=== PATIENT | female | born 1930 | race Caucasian/White ===

== ENCOUNTER 2018-05-22 10:40 | Emergency (ER) | payer BC, OTHER ==
--- NOTE | 2018-05-22 10:44 | PDOC ---
History of Present Illness - General Chief Complaint: Injury Stated Complaint: FALL Time Seen by Provider: 05/22/18 10:43 History Source: Patient, Spouse, Old Records Exam Limitations: No Limitations - History of Present Illness Initial Comments: HPI: 88 y/o female BIBEMS to [facility] ER complaining of pain and bleeding from right side of face. Pt reports she was walking outside and slipped in a puddle of water. She fell to the ground and struck the right side of her face. Her right arm was cushined by a bag she was carrying. Denies LOC, anterograde or retrograde amnesia, and/or nausea/vomiting. Was not able to stand afterward but reports she requires assistance moving from floor to standing normally. Denies headache, visual changes, or difficulty breathing. Pt is anticoagulated on Apixaban for atrial fibrillation. PCP: Dr. Downey Past History - Past Medical History Allergies/Adverse Reactions: Allergies Allergy/AdvReac Type Severity Reaction Status Date / Time No Known Allergies Allergy Verified 10/09/13 14:28 Home Medications: Ambulatory Orders Calcium Carbonate/Vitamin D3 [Calcium 500 + D Tablet] 1 each PO BID 10/09/13 Diltiazem "Cd" [Tiazac] 240 mg PO DAILY 10/09/13 Levothyroxine [Synthroid -] 50 mcg PO DAILY 10/09/13 Apixaban [Eliquis] 5 mg PO BID 05/22/18 Atorvastatin Ca [Lipitor] 10 mg PO HS 05/22/18 Propranolol HCl [Inderal LA] 120 mg PO DAILY 05/22/18 HTN: Yes Thyroid Disease: Yes - Surgical History Appendectomy: Yes - Suicide/Smoking/Psychosocial Hx Smoking History: Never smoked Hx Alcohol Use: No Review of Systems - Review of Systems Able to Perform ROS?: Yes Comments:: In addition to that documented in the HPI above, the additional ROS was obtained : Constitutional: Denies fevers or chills or syncope ENMT: Denies sore throat CV: Denies chest pain Resp: Denies SOB GI: Denies vomiting or diarrhea Trauma: Per HPI *Physical Exam - Physical Exam Comments: Constitutional: Well-developed, well-nourished elderly female in no acute distress or obvious discomfort. Found sitting upright on edge of hospital bed. Alert and oriented x4. Answered all questions appropriately and completely. Speech was non-labored, non-pressured. Head: Normocephalic. Superficial linear laceration above right orbit and on bridge of nose. Hematoma to middle of forehead. Oozing blood and clot at distal medial aspect of right nare. Symmetrical deformity to middle of nose. No periorbital bruising or Battles sign. Eyes: Pupils 3mm and PERRL bilaterally. Sclerae white. Conjunctiva moist and not injected. EARS: Hearing grossly intact. NOSE: No nasal discharge. THROAT: Upper dentures removed. Small amount of dried blood in posterior oropharynx without obvious intraoral injuries. Oral cavity and pharynx normal. No inflammation, swelling, exudate, or lesions. Neck: Supple, trachea is midline. Pt able to laterally rotate neck to left and right >45 degrees. No subjective C-spine tenderness or acute appearing bony deformities. No step off. Cardiovascular: Regular rate and regular rhythm. No murmur, rubs, clicks, or gallops. Peripheral pulses: Radial pulses full. Respiratory: Breathing unlabored. Equal chest rise and fall. Clear to auscultation bilaterally. No stridor, no wheezing, no rhonchi. Neuro: Alert and oriented. Moving all four extremities spontaneously. Skin: Warm and dry. Psych: Affect: appropriate. Mood: normal. Medical Decision Making - Medical Decision Making *Reviewed vital signs, nursing notes, and prior visit documentation (if available). 88 y/o female with superficial lacerations to face, oozing blood for nare, and nasal deformity after mechanical fall. Anticoagulated on Apixaban. Vitals unremarkable for hypotension or tachycardia. Will obtain head, c-spine, and facial bones to further evaluate. Pt declined analgesics. CT revealed closed fracture of nasal bones involving the septum. Not likely to require emergent correction as the pt denies difficulty breathing. Will refer to ENT for outpatient evaluation. Pt reassessed. Denies worsening pain. Minimal bleeding from nare continues. Pt will provide direct pressure. Will observe and reassess to insure hemostasis and stable vital signs. Pt reassessed. Bleeding appears to have stopped. Discussed imaging findings with pt and . Answered all questions. Provided return precautions. Both expressed verbal understanding and agreement with plan to discharge home with outpatient follow up. 05/22/18 14:30 Called to bedside by RN. Pt reports return of bleeding while using the bathroom. Had pt evacuate the nostril, which revealed several large clots. Pt will apply direct pressure. Direct pressure was unsuccessful in tamponading. Administered Afrin spray and then packed nare with TXA soaked gauze. Direct pressure was held. Hemostasis was achieved. Pt observed in department for a further 45 min at pt's family request. No further bleeding. Pt again provided return precautions for further bleeding. Discharged from the department without further incident. *DC/Admit/Observation/Transfer Diagnosis at time of Disposition: Anticoagulant long-term use, Fracture of nasal bones, initial encounter for closed fracture Fall (on)(from) sidewalk curb, initial encounter Qualifiers: Encounter type: initial encounter Qualified Code(s): W10.1XXA - Fall (on)(from ) sidewalk curb, initial encounter - Discharge Dispostion Disposition: HOME Condition at time of disposition: Stable - Referrals Referrals: Eliseo Downey MD [Primary Care Provider] - Denilson Mckeon MD [Staff Physician] - - Patient Instructions Printed Discharge Instructions: How to Prevent Falls Additional Instructions: You were seen today for injuries after falling on the sidewalk. The CT scan of your face showed you broke your nose. This does not require emergency treatment today but you will need outpatient evaluation by a Ear, Nose, and Throat doctor. I have referred you to Dr. Mckeon, a [facility] doctor. You will need to call to make an appointment. The number is included in this packet. You can take over the counter Tylenol as needed for pain. Take as directed on the package insert. Do not exceed the recommended dosage. Watch for more nose bleeding in the next several hours. Go to the nearest emergency department if the bleeding returns and does not stop, if your condition worsens, or you feel like you need additional emergency evaluation. Print Language: CUBAN - Post Discharge Activity
--- NOTE | 2018-05-22 10:45 | PDOC ---
Attending Attestation - Resident Resident Name: Eliseo Nguyen - HPI HPI: 05/22/18 11:41 Pt presents to the ED complaining of abrasions and bruising to the face after falling and hitting her head. Denies LOC, chest or abdominal pain. Ambulatory at the scene and in the ED. - Physicial Exam PE: 05/22/18 11:42 Agree with resident exam. Patient is alert and oriented x 3 and neurologically intact. + multiple facial abrasions and nasal swelling and tenderness. No orbital swelling or tenderness. 05/22/18 12:43 - Medical Decision Making 05/22/18 12:44 Pt presents to the ED complaining of facial abrasions and contusions after mechanical trip and fall. DEnies LOC but is on Eliquis. CT head and C spine checked to rule out intracranial or cervical spinal injruy and are negative. + nasal bone fx on Ct. Will discharge home with referral to ENT.
[2018-05-22 11:31] VITALS: BMI 26.5
[2018-05-22 11:55] VITALS: TEMP 97.7
[2018-05-22 14:20] VITALS: PULSE 75
[2018-05-22] MEDS ORDERED: TRANEXAMIC ACID 1000 MG/10 ML VIAL IVPUSH ONE (15:35)
[2018-05-22] MEDS ORDERED: TRANEXAMIC ACID 1000 MG/10 ML VIAL ONE (15:41)
[2018-05-22] MEDS ORDERED: OXYMETAZOLINE 0.05% NASAL SOLUTION 15 ML BOTTLE NS ONE (15:44)
[2018-05-22 18:14] VITALS: BP 129/64
== END 2018-05-22 18:05 | disposition home or self-care (01) ==
LOC: JER 10:40
PROC: 3E033GC Introduction of Other Therapeutic Substance into Peripheral Vein, Percutaneous Approach (ICD-10-PCS; principal; 2018-05-22)
DX: S02.2XXA Fracture of nasal bones, initial encounter for closed fracture (principal); S05.41XA Penetrating wound of orbit with or without foreign body, right eye, initial encounter; W10.1XXA Fall (on)(from) sidewalk curb, initial encounter; Y93.01 Activity, walking, marching and hiking; Y92.89 Other specified places as the place of occurrence of the external cause; Y99.8 Other external cause status; I10 Essential (primary) hypertension; I48.91 Unspecified atrial fibrillation; Z79.01 Long term (current) use of anticoagulants; E03.9 Hypothyroidism, unspecified
CPT/HCPCS: 70450-TC; 70486-TC; 72125-TC; 96374; 99283-25